=== PATIENT | male | born 1975 | race African-American/Black ===

== ENCOUNTER 2018-07-04 04:38 | Inpatient (IN) ==
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
[2018-07-04 07:42] LABS: Alanine Aminotransferase 39 U/L (12-78); Albumin 3.9 g/dL (3.4-5.0); Alkaline Phosphatase 65 U/L (45-117); Anion Gap 17 meq/L (5-15); Aspartate Aminotransferase 77 U/L (15-37); Blood Urea Nitrogen 15 mg/dL (7-18); Calcium 8.8 mg/dL (8.5-10.1); Carbon Dioxide 14.8 meq/L (21.0-32.0); Chloride 109 meq/L (98-107); Glomerular Filtration Rate 85 mL/min (>89); Potassium 3.5 meq/L (3.5-5.1); Sodium 141 meq/L (136-145); Total Protein 8.1 g/dL (6.4-8.2)
[2018-07-04 07:51] LABS: Alcohol 58 mg/dL (0-5); Glucose,Random 33 mg/dL (74-106)
[2018-07-04 08:20] LABS: Creatine Kinase 2216 U/L (39-308)
[2018-07-04] MEDS ORDERED: Sod Chloride 0.9% Inj 1,000 ML IV.SIG ONE (08:26)
[2018-07-04 08:43] LABS: CKMB Percent 0.7 % (0.0-4.0); Creatine Kinase MB 14.7 ng/mL (0.5-3.6)
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
[2018-07-04] MEDS ORDERED: Bisacodyl 10 MG Supp RECTAL PRN ×2 (09:54→09:56)
[2018-07-04] MEDS ORDERED: Acetaminophen 325 MG Tablet PO PRN (09:56)
[2018-07-04] MEDS: Sod Chloride 0.9% Inj 1,000 ML IV.CONT SCH ×3 (10:00→20:40)
[2018-07-04] MEDS ORDERED: Dextrose 50% in Water 50 ML Vial IV.PUSH PRN (10:08)
[2018-07-04] MEDS ORDERED: Haloperidol Inj 5 MG/ML Ampul IV.PUSH PRN ×2 (10:12→21:09)
[2018-07-04] MEDS ORDERED: LORazepam 1 MG Tablet PO PRN ×2 (10:12→21:09)
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
[2018-07-04 14:16] LABS: Baso % (Auto) 0.6 % (0.0-2.0); Eos # (Auto) 0.1 th/mm3 (0.0-0.4); Eos % (Auto) 1.8 % (0.0-4.0); Hematocrit 35.7 % (39.0-51.0); Hemoglobin 12.3 gm/dL (13.0-17.0); Lymph # (Auto) 1.6 th/mm3 (1.0-4.8); Lymph % (Auto) 24.8 % (9.0-44.0); Mean Corpuscular HGB Conc 34.4 % (32.0-36.0); Mean Corpuscular Hemoglobin 29.8 pg (27.0-34.0); Mean Corpuscular Volume 86.6 fL (80.0-100.0); Mean Platelet Volume 8.9 fL (7.0-11.0); Mono # (Auto) 0.7 th/mm3 (0.0-0.9); Neut # (Auto) 4.1 th/mm3 (1.8-7.7); Neut % (Auto) 62.8 % (16.0-70.0); Platelet Count 248 th/mm3 (150-450); Red Blood Count 4.13 mil/mm3 (4.50-5.90); Red Cell Distribution Width 14.4 % (11.6-17.2); White Blood Count 6.5 th/mm3 (4.0-11.0)
[2018-07-04 15:01] LABS: CKMB Percent 0.7 % (0.0-4.0); Creatine Kinase MB 9.7 ng/mL (0.5-3.6)
--- NOTE | 2018-07-04 15:37 | P.CONPSY ---
Provisional Diagnosis Admission Date: July 04, 2018 08:58 [place] I.: 1. Delirium, possibly substance-related or related to acute medical issues, mild 2. Polysubstance abuse [place] II.: Deferred History of Present Illness Service: Psychiatry Consult date: 07/04/18 Requesting Physician: Silvia Sanchez Reason for Consult: Banks Act Primary Care Provider: Shola Gee Family Provider: No Primary Care Physician History of Present Illness: Mr. Lucero is a 42 year-old male with a history of substance use issues and psychosis NOS who presents under a Banks act by [place] [employer] alleging that the patient was standing in the street and told officers that he had a history of mental illness and had not slept in 4 days. Patient has been placed in observation for management of rhabdomyolysis, chest pain and hypoglycemia. Reviewing the electronic medical record, I note that the patient was seen in the ED yesterday for altered mental status in the setting of reported MDMA use. I also note that the patient has been previously seen in consultation by Dr. Mart and was most recently psychiatrically hospitalized here under Dr. Hummel with diagnoses of stimulant abuse and psychosis NOS. Patient seen and examined. Chart reviewed. Case discussed with nursing staff. On my examination today, the patient presents as mildly encephalopathic. His level of alertness varies and he is somewhat inattentive during the interview. He struggles with attention/concentration testing. He is oriented to person and Hospital in [facility]. He is able to give the date by reading it off the wall. Presently, the patient denies any suicidal or homicidal ideation, intent or plan. He contracts for safety. He complains of some mild irritability. I can elicit no depressive or hypomanic/manic symptoms. He denies any audiovisual hallucinations. I can elicit no delusional material. Remainder of the psychiatric ROS is negative. No acute physical complaints. Past psychiatric history: Patient has previous diagnoses as noted above. He is not presently under the care of a psychiatrist. He is not adherent with psychotropic medications. He reports that his most recent psychiatric admission was here at [facility]. He denies a history of suicide attempts. Patient notes that Zyprexa has been helpful in the past. I note that he was on this medication along with lithium when hospitalized under Dr. Hummel. Family history: The patient reports that his father had some sort of mental illness issues. Chemical dependency history: The patient admits to recent use of MDMA. His urine toxicology on the sixth was positive for cocaine, amphetamines and cannabinoids. His alcohol level was also slightly elevated on presentation here. He endorses a history of amphetamine use and I note that his urine toxicology has been positive for cocaine and cannabinoids in the past. Social history: The patient reports that he resides alone. He is single with no children. He has his GED. He is on SSI. He denies any history. Denies any legal history. Denies any access to guns or firearms. He does endorse mosque/spiritual beliefs. Review of Systems All other systems reviewed negative except as stated in HPI (Limitation: Encephalopathy) [facility] - Medical History Medical History: Medical History (Last Reviewed 07/04/18 @ 05:54 by LIV Stallworth) CVA (cerebral vascular accident) HTN (hypertension) Myocardial infarction - Surgical History Surgical History: Surgical History (Last Reviewed 07/04/18 @ 05:54 by LIV Stallworth) History of abdominal surgery Medications and Allergies Active Medications: Active Medications Acetaminophen (Tylenol) 650 mg PO Q4H PRN PRN Reason: Temp > 100.4 Al Hydroxide/Mg Hydroxide (Milk Of Magnesia Liq) 30 ml PO Q12H PRN PRN Reason: Mild Constipation Bisacodyl (Dulcolax Supp) 10 mg RECTAL DAILY PRN PRN Reason: SEVERE CONSITIPATION Dextrose (D50w Vial) 50 ml IV.PUSH UNSCH PRN PRN Reason: PER HYPOGLYCEMIA PROTOCOL Enoxaparin Sodium (Lovenox Inj) 40 mg SQ Q24H PER Flumazenil (Romazecon Inj) 0.2 mg IV.PUSH Q1M PRN PRN Reason: OVERSEDATION Glucagon (Glucagon Inj) 1 mg OTHER UNSCH PRN PRN Reason: for Hypoglycemia Protocol Haloperidol Lactate (Haldol Inj) 1 mg IV.PUSH Q15M PRN PRN Reason: for severe agitation Sodium Chloride (Ns Inj) 1,000 mls @ 150 mls/hr IV.CONT .Q6H40M PER Last Admin: 07/04/18 10:00 Dose: 150 mls/hr Lactulose (Lactulose Liq) 30 ml PO DAILY PRN PRN Reason: SEVERE CONSITIPATION Lorazepam (Ativan) 1 mg PO Q4H PRN PRN Reason: for CIWA 8-10 Lorazepam (Ativan) 2 mg PO Q2H PRN PRN Reason: for CIWA 11-14 Lorazepam (Ativan Inj) 2 mg IV.PUSH Q2H PRN PRN Reason: for CIWA 11-14 Lorazepam (Ativan Inj) 2 mg IV.PUSH Q1H PRN PRN Reason: for CIWA 15-20 Lorazepam (Ativan Inj) 2 mg IV.PUSH Q15M PRN PRN Reason: for CIWA > 20 Lorazepam (Ativan Inj) 1 mg IV.PUSH Q4H PRN PRN Reason: for CIWA 8-10 Ondansetron HCl (Zofran Inj) 4 mg IV.PUSH Q6H PRN PRN Reason: NAUSEA OR VOMITING Senna/Docusate Sodium (Sully-Colace) 1 tab PO BID PER Sennosides (Senokot) 17.2 mg PO Q12H PRN PRN Reason: Moderate Constipation Temazepam (Restoril) 15 mg PO HS PRN PRN Reason: INSOMNIA Allergies Allergy/AdvReac Type Severity Reaction Status Date / Time ibuprofen Allergy Severe HIVES Verified 07/03/18 03:12 Home Medications Medication Instructions Recorded Confirmed Type Unable to Obtain Home Meds 07/03/18 07/04/18 History Exam Vital signs: Vital Signs 07/04/18 04:43 07/04/18 08:15 07/04/18 12:00 Temperature 98.6 F 97.7 F Pulse Rate 114 H 79 Respiratory Rate 20 16 Blood Pressure 136/73 117/77 Pulse Oximetry 98 99 97 Intake & Output 07/03/18 07/04/18 07/04/18 18:59 06:59 18:59 Intake Total 1000 / 1000 Balance 1000 / 1000 Weight 77.111 kg Intake: IV 1000 / 1000 NS Inj 1,000 ML @ Wide Open IV. 1000 / 1000 SIG BOLUS ONE Rx#:[id number] Narrative: Physical examination completed by primary team. On my examination today, the patient appears to be in no acute physical distress. No motor abnormalities noted. No signs of withdrawal noted. Labs and vital signs reviewed: Laboratory Tests 07/03/18 07/03/18 07/04/18 03:20 07:00 06:30 WBC Hgb Plt Count Sodium 141 Potassium 3.5 Chloride 109 H Carbon Dioxide 14.8 L Creatinine 1.16 Estimated GFR 85 L Random Glucose 33 L* AST 77 H ALT 39 Alkaline Phosphatase 65 Total Creatine Kinase TSH 0.888 Ur Amphetamines Screen Pos H Urine Cocaine Screen Pos H U Cannabinoids Screen Pos H Serum Alcohol 58 H 07/04/18 07/04/18 07/04/18 13:33 13:33 13:33 WBC 6.5 Hgb 12.3 L D Plt Count 248 Sodium Potassium Chloride Carbon Dioxide Creatinine Estimated GFR Random Glucose 60 L AST ALT Alkaline Phosphatase Total Creatine Kinase 1339 H TSH Ur Amphetamines Screen Urine Cocaine Screen U Cannabinoids Screen Serum Alcohol EKG from 07/03 reveals sinus rhythm with sinus arrhythmia. QTc within normal limits. Mental Status Examination Appearance: Disheveled Consciousness: Other (Level of alertness varies through the interview) Orientation: Person, Place, Date/Time (Hospital in [facility]) Motor Activity: Other (Motor exam as above) Speech: Unremarkable Language: Other (Somewhat rambling) Fund of Knowledge: Inadequate Attention and Concentration: Easily distracted Memory: Impaired (Mild) Mood: Other (Mildly dysphoric) Affect: Blunt Thought Process & Associations: Circumstantial Thought Content: Appropriate Hallucination Type: None Delusion Type: None Suicidal Ideation: No Suicidal Plan: No Suicidal Intention: No Homicidal Ideation: No Homicidal Plan: No Homicidal Intention: No Mental Status Exam Remarks: Insight and judgment are likely chronically poor, particularly with respect to substance use issues. Assessment and Plan - Assessment (1) Delirium Code(s): R41.0 - Disorientation, unspecified Status: Acute (2) Polysubstance abuse Code(s): F19.10 - Other psychoactive substance abuse, uncomplicated Status: Acute - Plan Plan: 42-year-old male with psychiatric history as detailed above who presents under a Banks act. Patient is presently in observation for management of acute medical issues. On my examination today, the patient is mildly encephalopathic. I suspect that this is related to a combination of his acute medical issues including the rhabdomyolysis and hypoglycemia and substance intoxication. There is no evidence of unstable mental illness as defined under the Banks act in this patient at this time. He is not presently suicidal or homicidal. I will lift the Banks act. The patient will need a referral for outpatient mental health and chemical dependency evaluation and treatment on discharge. I have discussed with patient the warning signs for need to return to the psychiatric emergency room as part of a general safety plan. CK is downtrending and QTc is not prolonged, and so I think it is safe at this juncture to add low dose Zyprexa to help clear his encephalopathy. Monitor for GABAergic withdrawal. I note a CIWA scale is in place. Also recommend general non-pharmacologic management recommendations including frequent reorientation, early mobilization and aggressive management of any constipation or urinary retention. Case discussed with RN. Thank you very much for this consultation. I will follow up no later than . Justification for Continued Inpatient Stay: Per primary team.
[2018-07-04] MEDS ORDERED: Temazepam 15 MG Capsule PO PRN (21:00)
[2018-07-04] MEDS: Senna/Docusate Sodium 8.6/50 MG Tablet PO SCH (21:12)
[2018-07-04] MEDS: Enoxaparin Inj 40 MG/0.4 ML Syringe SQ SCH (21:14)
[2018-07-04 22:52] LABS: CKMB Percent 0.7 % (0.0-4.0); Creatine Kinase MB 6.2 ng/mL (0.5-3.6)
[2018-07-05] MEDS: Thiamine Inj 500 MG in Sodium Chlor 0.9% Inj 250 ML IV.SIG SCH ×2 (01:39→07:39)
[2018-07-05] MEDS: Sod Chloride 0.9% Inj 1,000 ML IV.CONT SCH ×2 (01:39→08:13)
[2018-07-05 06:36] LABS: Amphetamine Screen,Urine Pos (Neg); Barbiturate Screen,Urine Neg (Neg); Cannabinoid Screen,Urine Pos (Neg); Cocaine Screen,Urine Pos (Neg)
[2018-07-05 06:52] LABS: Opiate Screen,Urine Neg (Neg)
[2018-07-05] MEDS: Senna/Docusate Sodium 8.6/50 MG Tablet PO SCH (08:14)
[2018-07-05] MEDS ORDERED: Multivitamin/Minerals Therapeutic Tablet PO SCH (09:00)
[2018-07-05] MEDS ORDERED: Folic Acid 1 MG Tablet PO SCH (09:00)
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
[2018-07-05] MEDS: Enoxaparin Inj 40 MG/0.4 ML Syringe SQ SCH (11:57)
[2018-07-05 11:59] VITALS: BP 112/57; PULSE 64; RESP 18; TEMP 98.1; O2SAT 95
[2018-07-05 14:28] LABS: Baso % (Auto) 0.7 % (0.0-2.0); Eos # (Auto) 0.1 th/mm3 (0.0-0.4); Eos % (Auto) 2.3 % (0.0-4.0); Hemoglobin 12.1 gm/dL (13.0-17.0); Lymph # (Auto) 1.6 th/mm3 (1.0-4.8); Lymph % (Auto) 28.6 % (9.0-44.0); Mean Corpuscular HGB Conc 34.6 % (32.0-36.0); Mean Corpuscular Volume 86.6 fL (80.0-100.0); Mean Platelet Volume 8.3 fL (7.0-11.0); Mono # (Auto) 0.4 th/mm3 (0.0-0.9); Mono % (Auto) 6.9 % (0.0-8.0); Neut # (Auto) 3.4 th/mm3 (1.8-7.7); Neut % (Auto) 61.5 % (16.0-70.0); Platelet Count 210 th/mm3 (150-450); Red Blood Count 4.04 mil/mm3 (4.50-5.90); Red Cell Distribution Width 13.8 % (11.6-17.2); White Blood Count 5.5 th/mm3 (4.0-11.0)
[2018-07-05 15:06] LABS: Alanine Aminotransferase 26 U/L (12-78); Albumin 2.9 g/dL (3.4-5.0); Alkaline Phosphatase 50 U/L (45-117); Anion Gap 8 meq/L (5-15); Aspartate Aminotransferase 28 U/L (15-37); Blood Urea Nitrogen 6 mg/dL (7-18); Calcium 8.3 mg/dL (8.5-10.1); Carbon Dioxide 27.2 meq/L (21.0-32.0); Chloride 110 meq/L (98-107); Glomerular Filtration Rate Greater Than 89 mL/min (>89); Glucose,Random 113 mg/dL (74-106); Potassium 3.3 meq/L (3.5-5.1); Sodium 145 meq/L (136-145); Total Protein 5.7 g/dL (6.4-8.2)
[2018-07-05 15:18] LABS: CKMB Percent 0.6 % (0.0-4.0); Creatine Kinase MB 2.3 ng/mL (0.5-3.6)
--- NOTE | 2018-07-05 15:22 | P.PNPSY ---
Subjective Remarks: Patient seen and examined in psychiatric follow up. Chart reviewed. Case discussed with nurse. No behavioral issues noted. Patient has been denying SI per RN. On my examination today, patient is dozing in his room. He is somewhat unengaged with interview. Thought process is clearer today, and it seems that encephalopathy is abating. He complains of feeling "a little depressed" and cites job stressors and other social stressors. No SI or HI voiced. Slept well with Zyprexa, and no side effects from this medication. No psychotic material, no evidence of impairment in reality construction. We discuss his substance use, but patient seems pre-contemplative with respect to changing his pattern of use. I suggest chem dep eval through [facility] or 12-step, but patient says he has 2 years of sobriety in the past without assistance. Vital Signs Temp Pulse Resp BP Pulse Ox 07/05/18 11:57 98.1 F 64 18 112/57 L 95 07/05/18 07:12 97.6 F 73 12 98/59 L 97 07/05/18 03:24 98.3 F 77 17 102/53 L 99 07/04/18 23:33 98.5 F 77 17 106/57 L 96 07/04/18 20:00 98.5 F 109 H 14 100/55 L 95 07/04/18 16:00 97.7 F 76 16 117/75 98 Intake and Output 07/05/18 07/05/18 07/05/18 06:59 14:59 22:59 Intake Total 1735 / 1735 1255 / 1255 Output Total 650 / 650 Balance 1085 / 1085 1255 / 1255 Intake: IV 1255 / 1255 1255 / 1255 NS Inj 1,000 ML @ 150 mls/hr IV 1000 / 1000 1000 / 1000 .CONT .[id number] PER Rx#:[id number] Thiamine Inj 500 MG In NS Inj 255 / 255 255 / 255 250 ML @ 62.5 mls/hr IV.SIG Q8H PER Rx#:[id number] Oral 480 / 480 Output: Urine 650 / 650 Laboratory Results - last 24 hr 07/04/18 07/04/18 07/04/18 15:10 21:20 21:44 WBC RBC Hgb Hct MCV MCH MCHC RDW Plt Count MPV Neut % (Auto) Lymph % (Auto) Kimball % (Auto) Eos % (Auto) Baso % (Auto) Neut # (Auto) Lymph # (Auto) Kimball # (Auto) Eos # (Auto) Baso # (Auto) WBC Differential Differential Comment Sodium Potassium Chloride Carbon Dioxide Anion Gap BUN Creatinine Estimated GFR POC Glucose 74 132 H Random Glucose Calcium Total Bilirubin AST ALT Alkaline Phosphatase Total Creatine Kinase 849 H CK-MB (CK-2) 6.2 H CK-MB (CK-2) % 0.7 Total Protein Albumin Urine Opiates Screen Ur Barbiturates Screen Ur Amphetamines Screen U Benzodiazepines Scrn Urine Cocaine Screen U Cannabinoids Screen 07/05/18 07/05/18 07/05/18 02:55 06:10 08:13 WBC RBC Hgb Hct MCV MCH MCHC RDW Plt Count MPV Neut % (Auto) Lymph % (Auto) Kimball % (Auto) Eos % (Auto) Baso % (Auto) Neut # (Auto) Lymph # (Auto) Kimball # (Auto) Eos # (Auto) Baso # (Auto) WBC Differential Differential Comment Sodium Potassium Chloride Carbon Dioxide Anion Gap BUN Creatinine Estimated GFR POC Glucose 83 106 Random Glucose Calcium Total Bilirubin AST ALT Alkaline Phosphatase Total Creatine Kinase CK-MB (CK-2) CK-MB (CK-2) % Total Protein Albumin Urine Opiates Screen Neg Ur Barbiturates Screen Neg Ur Amphetamines Screen Pos H U Benzodiazepines Scrn Neg Urine Cocaine Screen Pos H U Cannabinoids Screen Pos H 07/05/18 07/05/18 07/05/18 12:44 14:16 14:16 WBC 5.5 RBC 4.04 L Hgb 12.1 L Hct 35.0 L MCV 86.6 MCH 30.0 MCHC 34.6 RDW 13.8 Plt Count 210 MPV 8.3 Neut % (Auto) 61.5 Lymph % (Auto) 28.6 Kimball % (Auto) 6.9 Eos % (Auto) 2.3 Baso % (Auto) 0.7 Neut # (Auto) 3.4 Lymph # (Auto) 1.6 Kimball # (Auto) 0.4 Eos # (Auto) 0.1 Baso # (Auto) 0.0 WBC Differential . Differential Comment Auto diff final Sodium Potassium Chloride Carbon Dioxide Anion Gap BUN Creatinine Estimated GFR POC Glucose 90 Random Glucose Calcium Total Bilirubin AST ALT Alkaline Phosphatase Total Creatine Kinase 408 H CK-MB (CK-2) 2.3 CK-MB (CK-2) % 0.6 Total Protein Albumin Urine Opiates Screen Ur Barbiturates Screen Ur Amphetamines Screen U Benzodiazepines Scrn Urine Cocaine Screen U Cannabinoids Screen 07/05/18 14:16 WBC RBC Hgb Hct MCV MCH MCHC RDW Plt Count MPV Neut % (Auto) Lymph % (Auto) Kimball % (Auto) Eos % (Auto) Baso % (Auto) Neut # (Auto) Lymph # (Auto) Kimball # (Auto) Eos # (Auto) Baso # (Auto) WBC Differential Differential Comment Sodium 145 Potassium 3.3 L Chloride 110 H Carbon Dioxide 27.2 D Anion Gap 8 BUN 6 L Creatinine 0.88 Estimated GFR Greater than 89 POC Glucose Random Glucose 113 H Calcium 8.3 L Total Bilirubin 1.1 H AST 28 ALT 26 Alkaline Phosphatase 50 Total Creatine Kinase CK-MB (CK-2) CK-MB (CK-2) % Total Protein 5.7 L D Albumin 2.9 L D Urine Opiates Screen Ur Barbiturates Screen Ur Amphetamines Screen U Benzodiazepines Scrn Urine Cocaine Screen U Cannabinoids Screen Labs reviewed. CK downtrending. Toxicology positive for cocaine, amphetamines and cannabinoids. Review of Systems All other systems reviewed negative except as stated in HPI Mental Status Examination Appearance: Appropriate (Fair) Consciousness: Alert Orientation: Person, Place (At least) Motor Activity: Other (No hand tremor, no cogwheeling, no dystonia, no dyskinesia noted. No other motor abnormalities noted.) Speech: Hesitant Language: Adequate Fund of Knowledge: Adequate Attention and Concentration: Adequate Memory: Unremarkable Mood: Other (Remains a little dysphoric) Affect: Blunt Thought Process & Associations: Intact, Logical, Linear Thought Content: Appropriate Hallucination Type: None Delusion Type: None Suicidal Ideation: No Suicidal Plan: No Suicidal Intention: No Homicidal Ideation: No Homicidal Plan: No Homicidal Intention: No Mental Status Exam Remarks: Insight and judgment are perhaps [id number] overall and poor with respect to substance use issues. Assessment and Plan - Assessment (1) Polysubstance abuse Code(s): F19.10 - Other psychoactive substance abuse, uncomplicated Status: Acute - Plan Plan: Mentation is clearer today. Mood is a little dysphoric without any symptoms of severe depressive episode. This dysphoria could represent adjustment reaction to psychosocial stressors as patient himself suggests, or it could be substance- related. I would continue his Zyprexa as ordered, although dose could be titrated in follow up if needed to target dysphoria. Recommend outpatient follow up as before. Patient does not meet [place] Act criteria at this time after weighing relevant factors and based on available evidence. Case d/w RN. I will plan to follow up as needed. Thank you for this consultation. Justification for Continued Inpatient Stay: Per primary team.
[2018-07-05 16:12] LABS: Amphetamine Urine With Conf Pos (Neg); Benzodiazepine Urine With Conf Neg (Neg)
--- NOTE | 2018-07-05 22:18 | ECG ---
Date Performed: 07/04/2018 Time Performed: 23:36:31 PTAGE: 42 years EKG: Sinus rhythm NORMAL ECG PREVIOUS TRACING : 07/03/2018 07.00 Since the previous tracing, no significant change noted DOCTOR: Jordon Ha Interpretating Date/Time 07/05/2018 22:16:24
[2018-07-06] MEDS ORDERED: Thiamine Inj 500 MG in Sodium Chlor 0.9% Inj 500 ML IV.SIG SCH (21:09)
== END 2018-07-05 18:35 | disposition home or self-care (01) ==
LOC: NEDA 04:38 → NEPD 04:38 → NEPFCDU 14:00
PROVIDERS: ADMIT Family Medicine; ATTEND Family Medicine